=== PATIENT | female | born 1990 | race Caucasian/White ===

== ENCOUNTER 2018-01-06 22:24 | Inpatient (IN) | payer BC ==
[~2018-01-06] VITALS: Ht 167.6 cm; Wt 71.8 kg
[2018-01-06] MEDS ORDERED: OXYTOCIN 30U/ 0.9% NaCL 500ML 500 ML IV ONE (22:34)
[2018-01-06] MEDS ORDERED: D5%-LACTATED RINGERS 1,000 ML IV SCH (22:34)
[2018-01-06] MEDS ORDERED: NEWBORN KIT ONE (22:38)
[2018-01-06] MEDS ORDERED: OXYTOCIN 30U/ 0.9% NaCL 500ML 500 ML ONE (22:38)
[2018-01-06] MEDS ORDERED: LIDOCAINE-MPF 1%, 5ML ONE (22:41)
[2018-01-06] MEDS ORDERED: MISOPROSTOL 200 MCG TABLET ONE (22:42)
[2018-01-06] MEDS: LACTATED RINGERS 1,000 ML IV SCH (22:46)
[2018-01-06 22:57] LABS: BASOPHILS # (AUTO) 0.01 x10^3/uL (0-0.1); BASOPHILS % (AUTO) 0 % (0-1); EOSINOPHILS % (AUTO) 0 % (1-7); LYMPHOCYTES # (AUTO) 0.94 x10^3/uL (1-3.4); LYMPHOCYTES % (AUTO) 8 % (22-44); MD NO; MEAN CORPUSCULAR HEMOGLOBIN 33.4 pg (27.0-34.8); MEAN CORPUSCULAR HGB CONC 34.5 g/dL (32.4-35.8); MEAN CORPUSCULAR VOLUME 96.9 fL (80-100); MEAN PLATELET VOLUME 8.8 fL (7.4-10.4); MONOCYTES % (AUTO) 3 % (2-9); NEUTROPHILS # (AUTO) 11.15 x10^3/uL (1.8-6.8); NEUTROPHILS % (AUTO) 90 % (42-75); PLATELET COUNT 196 x10^3/uL (130-400); RED BLOOD COUNT 3.96 x10^6/uL (3.82-5.3); RED CELL DISTRIBUTION WIDTH 12.8 % (9.6-15.2)
[2018-01-06] MEDS ORDERED: CALCIUM CARBONATE 500 MG TAB.CHEW PO PRN (23:00)
[2018-01-06] MEDS ORDERED: FENTANYL PF 100 MCG/2ML IVPush PRN (23:00)
[2018-01-06] MEDS ORDERED: FENTANYL PF 100 MCG/2ML IV PRN (23:00)
[2018-01-06] MEDS ORDERED: ONDANSETRON 2MG/ML, 2ML IVPush PRN (23:00)
[2018-01-06 23:51] VITALS: BP 136/74
[2018-01-07] MEDS ORDERED: LIDOCAINE-MPF 1%, 5ML ONE ×2 (01:22→01:32)
[2018-01-07] MEDS: OXYTOCIN 30U/ 0.9% NaCL 500ML 500 ML IV SCH ×3 (02:27→22:27)
[2018-01-07] MEDS ORDERED: METOCLOPRAMIDE 5 MG/ML, 2ML IV PRN (02:30)
[2018-01-07] MEDS ORDERED: CARBOPROST TROMETHAMINE 250 MCG/ML, 1ML IM PRN (02:30)
[2018-01-07] MEDS ORDERED: METHYLERGONOVINE 0.2 MG/ML IM PRN (02:30)
[2018-01-07] MEDS ORDERED: BISACODYL 10 MG SUPP PR PRN (02:30)
[2018-01-07] MEDS ORDERED: ACETAMINOPHEN 325 MG TABLET PO PRN (02:30)
[2018-01-07] MEDS ORDERED: GLYCERIN ADULT SUPP PR PRN (02:30)
[2018-01-07] MEDS ORDERED: IBUPROFEN 800 MG TABLET PO PRN (02:30)
[2018-01-07] MEDS ORDERED: DOCUSATE 100 MG CAPSULE PO PRN (02:30)
[2018-01-07] MEDS ORDERED: ONDANSETRON 2MG/ML, 2ML IV PRN (02:30)
[2018-01-07] MEDS ORDERED: MISOPROSTOL 200 MCG TABLET PR PRN (02:30)
[2018-01-07] MEDS ORDERED: OXYcodone/APAP 5/325MG TABLET PO PRN ×2 (02:30)
[2018-01-07] MEDS ORDERED: OXYcodone/APAP 5/325MG TABLET ONE (02:32)
[2018-01-07] MEDS: LACTATED RINGERS 1,000 ML IV SCH ×3 (02:35→22:34)
[2018-01-07 03:45] VITALS: BP 129/76
[2018-01-07 07:45] VITALS: BP 120/74
[2018-01-07 09:19] LABS: BASOPHILS # (AUTO) 0.01 x10^3/uL (0-0.1); BASOPHILS % (AUTO) 0 % (0-1); EOSINOPHILS # (AUTO) 0.01 x10^3/uL (0-0.4); EOSINOPHILS % (AUTO) 0 % (1-7); LYMPHOCYTES # (AUTO) 1.13 x10^3/uL (1-3.4); LYMPHOCYTES % (AUTO) 7 % (22-44); MD NO; MEAN CORPUSCULAR HEMOGLOBIN 33.4 pg (27.0-34.8); MEAN CORPUSCULAR HGB CONC 33.8 g/dL (32.4-35.8); MEAN CORPUSCULAR VOLUME 98.8 fL (80-100); MEAN PLATELET VOLUME 8.9 fL (7.4-10.4); MONOCYTES # (AUTO) 0.73 x10^3/uL (0.2-0.8); MONOCYTES % (AUTO) 4 % (2-9); NEUTROPHILS # (AUTO) 15.05 x10^3/uL (1.8-6.8); NEUTROPHILS % (AUTO) 89 % (42-75); PLATELET COUNT 193 x10^3/uL (130-400); RED BLOOD COUNT 3.99 x10^6/uL (3.82-5.3); RED CELL DISTRIBUTION WIDTH 12.6 % (9.6-15.2)
[2018-01-07] MEDS: IBUPROFEN 600 MG TABLET PO PRN ×2 (09:37→16:09)
[2018-01-07] MEDS: PRENATAL VIT/IRON/FA 1 EACH TABLET PO SCH (09:37)
[2018-01-07 12:30] VITALS: BP 119/75
[2018-01-07 16:01] VITALS: BP 138/86
[2018-01-07 19:30] VITALS: BP 117/74
[2018-01-07 23:45] VITALS: BP 119/69
[2018-01-08] MEDS: LACTATED RINGERS 1,000 ML IV SCH (06:34)
[2018-01-08 07:45] VITALS: BP 130/82
[2018-01-08] MEDS: OXYTOCIN 30U/ 0.9% NaCL 500ML 500 ML IV SCH (08:27)
[2018-01-08] MEDS: PRENATAL VIT/IRON/FA 1 EACH TABLET PO SCH (09:00)
[2018-01-08] MEDS ORDERED: IBUP-1222 PO (09:19)
== END 2018-01-08 11:27 | disposition home or self-care (01) | DRG 775 ==
LOC: LDOP 22:24 → LDIP 22:34 → 2NW 01-07 03:25
PROVIDERS: ADMIT Obstetrics & Gynecology; ATTEND Obstetrics & Gynecology
PROC: 0HQ9XZZ Repair Perineum Skin, External Approach (ICD-10-PCS; principal; 2018-01-07)
PROC: 10E0XZZ Delivery of Products of Conception, External Approach (ICD-10-PCS; 2018-01-07)
PROC: 3E0R3BZ Introduction of Anesthetic Agent into Spinal Canal, Percutaneous Approach (ICD-10-PCS; 2018-01-07)
PROC: 00HU33Z Insertion of Infusion Device into Spinal Canal, Percutaneous Approach (ICD-10-PCS; 2018-01-07)
DX: O16.4 Unspecified maternal hypertension, complicating childbirth (principal); I10 Essential (primary) hypertension; B00.9 Herpesviral infection, unspecified; Z37.0 Single live birth; O70.0 First degree perineal laceration during delivery; Z3A.40 40 weeks gestation of pregnancy; O71.89 Other specified obstetric trauma
CPT/HCPCS: 36415; 82803; 85025; 86850; 86900; J7120

== ENCOUNTER 2019-12-17 15:50 | Inpatient (IN) | payer OTHER ==
[~2019-12-17] VITALS: Ht 167.6 cm; Wt 73.2 kg
[~2019-12-17 15:50] MED LIST: IBUP-1222 PO
[2019-12-17 16:38] LABS: MICROSCOPIC AUTO
[2019-12-17 16:42] LABS: BASOPHILS # (AUTO) 0.01 x10^3/uL (0-0.1); BASOPHILS % (AUTO) 0 % (0-1); EOSINOPHILS # (AUTO) 0.01 x10^3/uL (0-0.4); EOSINOPHILS % (AUTO) 0 % (1-7); LYMPHOCYTES # (AUTO) 1.27 x10^3/uL (1-3.4); LYMPHOCYTES % (AUTO) 22 % (22-44); MD NO; MEAN CORPUSCULAR HEMOGLOBIN 34.5 pg (27.0-34.8); MEAN CORPUSCULAR HGB CONC 33.8 g/dL (32.4-35.8); MEAN CORPUSCULAR VOLUME 102.2 fL (80-100); MEAN PLATELET VOLUME 8.8 fL (7.4-10.4); MONOCYTES # (AUTO) 0.33 x10^3/uL (0.2-0.8); MONOCYTES % (AUTO) 6 % (2-9); NEUTROPHILS # (AUTO) 4.28 x10^3/uL (1.8-6.8); NEUTROPHILS % (AUTO) 73 % (42-75); PLATELET COUNT 146 x10^3/uL (130-400); RED BLOOD COUNT 3.48 x10^6/uL (3.82-5.3); RED CELL DISTRIBUTION WIDTH 12.9 % (9.6-15.2)
[2019-12-17 16:46] LABS: ALBUMIN 2.6 g/dL (3.4-5.0); ANION GAP 6 mmol/L (5-15); CALCIUM 8.6 mg/dL (8.5-10.1); CHLORIDE 112 mmol/L (98-107)
[2019-12-17 16:48] LABS: CREATININE,URINE RANDOM 13.6 mg/dL
[2019-12-17 16:50] LABS: ALANINE AMINOTRANSFERASE 10 U/L (12-78); ALKALINE PHOSPHATASE 146 U/L (45-117); BILIRUBIN,TOTAL 0.4 mg/dL (0.2-1.0); CREATININE 0.67 mg/dL (0.55-1.02); TOTAL PROTEIN 5.7 g/dL (6.4-8.2)
[2019-12-17] MEDS ORDERED: MAGNESIUM SULF. PMX 20GM/500ML 0 ML IV ONE (17:41)
[2019-12-17] MEDS ORDERED: OXYTOCIN 30U/ 0.9% NaCL 500ML 1,000 ML ONE (17:41)
[2019-12-17] MEDS ORDERED: NEWBORN KIT ONE (17:41)
[2019-12-17] MEDS ORDERED: LIDOCAINE 1%, 20ML ONE (17:41)
[2019-12-17] MEDS ORDERED: MISOPROSTOL 200 MCG TABLET ONE (17:41)
[2019-12-17] MEDS ORDERED: MAGNESIUM SULF. PMX 20GM/500ML 500 ML IV ONE (17:42)
[2019-12-17] MEDS ORDERED: OXYTOCIN 30U/ 0.9% NaCL 500ML 500 ML IV ONE (18:07)
[2019-12-17] MEDS ORDERED: LACTATED RINGERS 1,000 ML IV SCH ×2 (18:07→19:42)
[2019-12-17] MEDS ORDERED: OXYTOCIN 30U/ 0.9% NaCL 500ML 500 ML IV PRN (18:07)
[2019-12-17] MEDS: MAGNESIUM SULF. PMX 20GM/500ML 500 ML IV SCH (18:20)
[2019-12-17] MEDS ORDERED: ONDANSETRON 2MG/ML, 2ML IVPush PRN (18:30)
[2019-12-17] MEDS ORDERED: TERBUTALINE 1 MG/ML, 1ML IVPush PRN (18:30)
[2019-12-17] MEDS ORDERED: TERBUTALINE 1 MG/ML, 1ML SQ PRN (18:30)
[2019-12-17] MEDS ORDERED: MAGNESIUM SULFATE PMX 4GM/100M 100 ML IVPB ONE (18:30)
[2019-12-17] MEDS ORDERED: CALCIUM CARBONATE 500 MG TAB.CHEW PO PRN (18:30)
[2019-12-17] MEDS ORDERED: FENTANYL PF 100 MCG/2ML IVPush PRN (18:30)
[2019-12-17] MEDS ORDERED: FENTANYL PF 100 MCG/2ML IV PRN (18:30)
[2019-12-17] MEDS ORDERED: FENTANYL/BUPIV./NS/PF 250 ML EPIDCONT SCH (19:42)
[2019-12-17] MEDS ORDERED: EPHEDRINE 50 MG/ML, 1ML IVPush PRN (20:00)
[2019-12-17] MEDS ORDERED: NALOXONE 0.4 MG/ML, 1ML IVPush PRN (20:00)
[2019-12-17] MEDS ORDERED: FENTANYL PF 500 MCG, BUPIVACAINE/PF 0.5%, 30ML 62.5 ML in SODIUM CHLORIDE 0.9% 177.5 ML EPIDCONT SCH (20:00)
[2019-12-17] MEDS ORDERED: LACTATED RINGERS 1,000 ML IVBOLUS PRN (20:00)
[2019-12-17] MEDS ORDERED: ACETAMINOPHEN 325 MG TABLET ONE (21:13)
[2019-12-17] MEDS ORDERED: hydrALAzine 20 MG/ML, 1ML IVPush ONE (21:30)
[2019-12-17] MEDS ORDERED: LABETALOL 5MG/ML, 20ML IVPush PRN ×3 (21:30)
[2019-12-17] MEDS ORDERED: ACETAMINOPHEN 325 MG TABLET PO PRN (21:30)
[2019-12-18] MEDS ORDERED: LACTATED RINGERS 1,000 ML INTUTE SCH (02:00)
[2019-12-18] MEDS ORDERED: LACTATED RINGERS 1,000 ML INTUTE PRN (02:00)
[2019-12-18] MEDS ORDERED: MAGNESIUM SULF. PMX 20GM/500ML 500 ML IV ONE ×3 (02:01→23:13)
[2019-12-18] MEDS: MAGNESIUM SULF. PMX 20GM/500ML 500 ML IV SCH ×3 (02:09→23:17)
[2019-12-18] MEDS ORDERED: ONDANSETRON 2MG/ML, 2ML ONE (02:19)
[2019-12-18] MEDS ORDERED: FENTANYL PF 100 MCG/2ML ONE (03:09)
[2019-12-18] MEDS ORDERED: ONDANSETRON 2MG/ML, 2ML IV PRN (04:00)
[2019-12-18] MEDS ORDERED: MISOPROSTOL 200 MCG TABLET PR PRN (04:00)
[2019-12-18] MEDS ORDERED: OXYcodone/APAP 5/325MG TABLET PO PRN ×2 (04:00)
[2019-12-18] MEDS ORDERED: ACETAMINOPHEN 325 MG TABLET PO PRN ×2 (04:00)
[2019-12-18] MEDS ORDERED: CARBOPROST TROMETHAMINE 250 MCG/ML, 1ML IM PRN (04:00)
[2019-12-18] MEDS ORDERED: SIMETHICONE 80 MG CHEW TAB PO PRN (04:00)
[2019-12-18] MEDS: OXYTOCIN 30U/ 0.9% NaCL 500ML 500 ML IV SCH ×3 (04:34→23:33)
[2019-12-18] MEDS ORDERED: IBUPROFEN 600 MG TABLET ONE ×3 (06:24→18:31)
[2019-12-18] MEDS: IBUPROFEN 600 MG TABLET PO PRN ×3 (06:26→18:32)
[2019-12-18 08:41] VITALS: BP 171/98
[2019-12-18 08:45] VITALS: BP 151/89
[2019-12-18] MEDS ORDERED: OXYcodone/APAP 5/325MG TABLET ONE ×2 (09:05→16:25)
[2019-12-18] MEDS ORDERED: PRENATAL VIT/IRON/FA 1 EACH TABLET ONE (09:13)
[2019-12-18] MEDS ORDERED: DOCUSATE 100 MG CAPSULE ONE (09:13)
[2019-12-18] MEDS: PRENATAL VIT/IRON/FA 1 EACH TABLET PO SCH (09:15)
[2019-12-18] MEDS: DOCUSATE 100 MG CAPSULE PO PRN (09:15)
[2019-12-18 10:05] VITALS: BP 144/91
[2019-12-18 11:26] LABS: MEAN CORPUSCULAR HEMOGLOBIN 34.9 pg (27.0-34.8); MEAN CORPUSCULAR HGB CONC 34.4 g/dL (32.4-35.8); MEAN CORPUSCULAR VOLUME 101.7 fL (80-100); MEAN PLATELET VOLUME 8.7 fL (7.4-10.4); PLATELET COUNT 142 x10^3/uL (130-400); RED BLOOD COUNT 3.69 x10^6/uL (3.82-5.3); RED CELL DISTRIBUTION WIDTH 13.3 % (9.6-15.2)
[2019-12-18 11:51] LABS: BASOPHILS % (AUTO) 0 % (0-1); EOSINOPHILS % (AUTO) 0 % (1-7); LYMPHOCYTES # (AUTO) 0.86 x10^3/uL (1-3.4); LYMPHOCYTES % (AUTO) 8 % (22-44); MD SCAN; MONOCYTES # (AUTO) 0.44 x10^3/uL (0.2-0.8); MONOCYTES % (AUTO) 4 % (2-9); NEUTROPHILS # (AUTO) 9.84 x10^3/uL (1.8-6.8); NEUTROPHILS % (AUTO) 88 % (42-75)
[2019-12-18] MEDS ORDERED: LABETALOL 100 MG TABLET ONE ×2 (12:54→23:13)
[2019-12-18] MEDS: LABETALOL 100 MG TABLET PO SCH (12:56)
[2019-12-18 13:29] LABS: ALBUMIN 2.5 g/dL (3.4-5.0); ANION GAP 5 mmol/L (5-15); CALCIUM 6.6 mg/dL (8.5-10.1); CHLORIDE 109 mmol/L (98-107)
[2019-12-18 13:31] LABS: ALANINE AMINOTRANSFERASE 10 U/L (12-78); ALKALINE PHOSPHATASE 134 U/L (45-117); BILIRUBIN,TOTAL 0.5 mg/dL (0.2-1.0); CREATININE 0.65 mg/dL (0.55-1.02); TOTAL PROTEIN 5.4 g/dL (6.4-8.2)
[2019-12-18 14:33] VITALS: BP 140/91
[2019-12-18 19:55] VITALS: BP 145/87
[2019-12-18 23:30] VITALS: BP 134/87
[2019-12-19] VITALS (7 sets, daily range): BP systolic 117–150; BP diastolic 74–94
[2019-12-19] MEDS ORDERED: IBUPROFEN 600 MG TABLET ONE (00:09)
[2019-12-19] MEDS ORDERED: SODIUM CHLORIDE NASAL SPRAY 45ML BOTTLE NAS PRN (07:30)
[2019-12-19] MEDS: LABETALOL 100 MG TABLET PO SCH ×2 (08:21→20:54)
[2019-12-19] MEDS: DOCUSATE 100 MG CAPSULE PO PRN ×2 (08:21→20:54)
[2019-12-19] MEDS: PRENATAL VIT/IRON/FA 1 EACH TABLET PO SCH (08:21)
[2019-12-19] MEDS: OXYTOCIN 30U/ 0.9% NaCL 500ML 500 ML IV SCH ×2 (09:33→19:33)
[2019-12-20 00:10] VITALS: BP 138/80
[2019-12-20 04:30] VITALS: BP 133/77
[2019-12-20] MEDS: OXYTOCIN 30U/ 0.9% NaCL 500ML 500 ML IV SCH (05:33)
[2019-12-20 07:41] VITALS: BP 139/83
[2019-12-20] MEDS: DOCUSATE 100 MG CAPSULE PO PRN (08:33)
[2019-12-20] MEDS: LABETALOL 100 MG TABLET PO SCH (08:33)
[2019-12-20] MEDS: PRENATAL VIT/IRON/FA 1 EACH TABLET PO SCH (08:33)
[2019-12-20] MEDS ORDERED: IBUP-1222 PO (10:16)
[2019-12-20] MEDS ORDERED: LABE100T6 PO (10:18)
== END 2019-12-20 11:00 | disposition home or self-care (01) | DRG 807 ==
LOC: LDOP 15:50 → LDIP 17:37 → 2NE 12-18 05:16 → 2NW 12-19 04:54
PROVIDERS: ADMIT Obstetrics & Gynecology; ATTEND Obstetrics & Gynecology
PROC: 10E0XZZ Delivery of Products of Conception, External Approach (ICD-10-PCS; principal; 2019-12-18)
PROC: 10907ZC Drainage of Amniotic Fluid, Therapeutic from Products of Conception, Via Natural or Artificial Opening (ICD-10-PCS; 2019-12-18)
PROC: 3E033VJ Introduction of Other Hormone into Peripheral Vein, Percutaneous Approach (ICD-10-PCS; 2019-12-18)
PROC: 10H07YZ Insertion of Other Device into Products of Conception, Via Natural or Artificial Opening (ICD-10-PCS; 2019-12-18)
DX: O14.14 Severe pre-eclampsia complicating childbirth (principal); Z37.0 Single live birth; Z3A.38 38 weeks gestation of pregnancy; Z82.3 Family history of stroke; Z82.49 Family history of ischemic heart disease and other diseases of the circulatory system; O13.4 Gestational [pregnancy-induced] hypertension without significant proteinuria, complicating childbirth
CPT/HCPCS: 36415; 80053; 81001; 82570; 83735; 84156; 84550; 85025; 86592; 86850; 86900; G0378; J2405; J3010; J2590; J3475; J7120